=== PATIENT | male | born 1970 | race Caucasian/White ===

== ENCOUNTER 2018-11-03 14:41 | Emergency (ER) | payer BC, OTHER ==
--- NOTE | 2018-11-03 14:48 | UC ---
Dental HPI - HPI Summary HPI Summary: 47 yo male presents with dental pain. He tells me that over the last 2-3 days he has had left lower tooth pain. Yesterday noticed some swelling to his jaw/ cheek and today seems worse. He has been taking ibuprofen for the discomfort with little relief. He is eating and drinking well. Tolerating po well. Denies fever or chills - History of Current Complaint Stated Complaint: DENTAL Time Seen by Provider: 11/03/18 14:46 Hx Obtained From: Patient Onset/Duration: Gradual Onset Severity: Moderate Pain Intensity: 5 Pain Scale Used: 0-10 Numeric - Allergies/Home Medications Allergies/Adverse Reactions: Allergies Allergy/AdvReac Type Severity Reaction Status Date / Time No Known Allergies Allergy Verified 11/03/18 14:53 Home Medications: Home Medications Ibuprofen [Advil] 400 mg PO Q6HR PRN 11/03/18 [History Confirmed 11/03/18] Ibuprofen/Diphenhydramine Cit [Advil Pm Caplet] 1 tab PO ONCE 11/03/18 [History Confirmed 11/03/18] buPROPion HCl [Bupropion HCl Sr] 150 mg PO DAILY 11/03/18 [History Confirmed ] PMH/Surg Hx/FS Hx/Imm Hx - Additional Past Medical History Additional PMH: Erectile dysfunction Seasonal allergies Psychological History: Anxiety, Depression - Surgical History Surgical History: Yes Surgery Procedure, Year, and Place: left hand,. left knee reconstructive surgery had arthros done. recon 1997 - Family History Known Family History: Positive: Hypertension - Social History Lives: With Family Alcohol Use: Daily Alcohol Amount: 1-2 DRINKS/WEEK Substance Use Type: None Smoking Status (MU): Never Smoked Tobacco Have You Smoked in the Last Year: No Review of Systems All Other Systems Reviewed And Are Negative: Yes Constitutional: Positive: Negative Skin: Positive: Negative Eyes: Positive: Negative ENT: Positive: Dental Pain Respiratory: Positive: Negative Cardiovascular: Positive: Negative Neurological: Positive: Negative Psychological: Positive: Negative Physical Exam - Summary Physical Exam Summary: GENERAL: NAD. WDWN. No pain distress. SKIN: No rashes, sores, lesions, or open wounds. HEENT: Head: AT/NC Nose: Nasal mucosa pink and moist. NTTP maxillary and frontal sinus. Throat: Posterior oropharynx without exudates, erythema, or tonsillar enlargement. Uvula midline. NECK: Supple. Nontender. No lymphadenopathy. CHEST: No accessory muscle use. Breathing comfortably and in no distress. CV: Pulses intact. Cap refill <2seconds NEURO: Alert. PSYCH: Age appropriate behavior. Triage Information Reviewed: Yes Vital Signs: Vital Signs: Temp Pulse Resp BP Pulse Ox 98.7 F 85 18 165/93 98 11/03/18 14:47 11/03/18 14:47 11/03/18 14:47 11/03/18 14:47 11/03/18 14:47 Vital Signs Reviewed: Yes Dental: Positive: Percussion Tenderness @ - Tooth #18, Gross Decay/Caries @ - Tooth #18, Abscess @ - Tooth #18. Negative: Dental Fracture @, Cellulitis @, Cervical Lymphadenopathy, Bleeding Dental Complaint Course/Dx - Course Course Of Treatment: Tooth #18 abscess - Differential Dx/Diagnosis Provider Diagnosis: Dental abscess Discharge - Sign-Out/Discharge Documenting (check all that apply): Patient Departure All imaging exams completed and their final reports reviewed: No Studies - Discharge Plan Condition: Stable Disposition: HOME Prescriptions: Amoxicillin PO (*) [Amoxicillin 500 MG CAP*] 500 mg PO Q12H #14 cap Patient Education Materials: Dental Abscess (ED) Referrals: No Primary Care Phys,NOPCP [Primary Care Provider] - Additional Instructions: If you develop a fever, shortness of breath, chest pain, new or worsening symptoms - please call your PCP or go to the ED immediately. Your blood pressure was high at todays visit. Please see your primary provider within 4 weeks for recheck and re-evaluation. Please schedule an appointment with your dentist within a week for a recheck - Billing Disposition and Condition Condition: STABLE Disposition: Home - Attestation Statements Provider Attestation: I was available for consult. This patient was seen by the [facility]. The patient was not presented to, seen by, or examined by me. -Cathy
[2018-11-03 14:55] VITALS: BP 165/93
== END 2018-11-03 15:08 | disposition home or self-care (01) ==
LOC: UCEAST 14:41
DX: K04.7 Periapical abscess without sinus (principal)
CPT/HCPCS: 99212; G0463